=== PATIENT | male | born 1995 | race Two or more races ===

== ENCOUNTER 2018-12-12 13:25 | Emergency (ER) | payer OTHER ==
[~2018-12-12] VITALS: Ht 182.9 cm; Wt 117.9 kg
[~2018-12-12 13:25] MED LIST: OSEL75CA PO; TUSSI PRES-B L120 M1 PO
== END 2018-12-12 17:23 | disposition home or self-care (01) ==
LOC: ER 13:25
DX: J45.998 Other asthma (principal)